=== PATIENT | female | born 1985 ===

== ENCOUNTER 2017-06-22 19:56 | Emergency (ER) | payer OTHER, BC ==
[2017-06-22 20:36] VITALS: RESP 16; TEMP 98.3; BMI 23.4
--- NOTE | 2017-06-22 20:48 | ED PDOC ---
Arrival/HPI - General Historian: Patient - History of Present Illness Time/Duration: Prior to Arrival Symptom Onset: Sudden Symptom Course: Unchanged Quality: Aching, Throbbing Severity Level: 8 Context: Walking, Work - General Chief Complaint: Back Pain Time Seen by Provider: 06/22/17 20:31 - History of Present Illness Narrative History of Present Illness (Text): 32 F with no significant PMH presents to ED with complaint of fall. Patient states that she was at work around 7 when she went to exit a platform and fell on her right side. She denies head trauma and LOC. Patient is experiencing pain in R shoulder, R hip, R femur and lower back. Patient rates pain as moderate to severe. She describes it as constant, aching and throbbing. Denies numbness/ tingling, weakness, motor/sensory deficit. (Leo Pugh) Past Medical History - Provider Review Nursing Documentation Reviewed: Yes - Travel History Have you recently traveled outside [place] w/in the past 3 mons?: No - Past History Past History: No Previous - Reproductive Menopause: No - Psychiatric Hx Substance Use: No Family/Social History - Physician Review Nursing Documentation Reviewed: Yes Family/Social History: Neoplasm/Cancer (lung) Smoking Status: Never Smoked Hx Alcohol Use: No Hx Substance Use: No Allergies/Home Meds Allergies/Adverse Reactions: Allergies No Known Allergies Allergy (Verified 06/22/17 20:27) Home Medications: Home Meds Medication Instructions Recorded Confirmed No Known Home Med 06/22/17 06/22/17 Review of Systems - Review of Systems Constitutional: absent: Fatigue, Weight Change, Fevers Eyes: absent: Vision Changes, Photophobia, Eye Pain ENT: absent: Hearing Changes, Sinus Congestion Respiratory: absent: SOB, Cough, Sputum, Wheezing Cardiovascular: absent: Chest Pain, Palpitations Gastrointestinal: absent: Abdominal Pain, Constipation, Diarrhea, Nausea, Vomiting Genitourinary Female: absent: Dysuria, Frequency, Hematuria Musculoskeletal: Arthralgias, Back Pain, Myalgias Skin: absent: Pruritis, Skin Lesions Neurological: Headache Endocrine: absent: Diaphoresis, Polyuria, Polydipsia Hemo/Lymphatic: absent: Adenopathy, Easy Bleeding, Easy Bruising Psychiatric: absent: Anxiety, Depression, Suicidal Ideation Physical Exam Vital Signs Reviewed: Yes Temperature: Afebrile Blood Pressure: Normal Pulse: Regular Respiratory Rate: Normal Appearance: Positive for: Uncomfortable Pain Distress: Moderate Mental Status: Positive for: Alert and Oriented X 3 - Systems Exam Head: Present: Atraumatic, Normocephalic Pupils: Present: PERRL Extroacular Muscles: Present: EOMI Conjunctiva: Present: Normal Mouth: Present: Moist Mucous Membranes Respiratory/Chest: Present: Clear to Auscultation, Good Air Exchange Cardiovascular: Present: Regular Rate and Rhythm, Normal S1, S2 Abdomen: Present: Normal Bowel Sounds. No: Tenderness, Distention, Peritoneal Signs, Rebound, Guarding Back: Present: Paraspinal Tenderness. No: CVA Tenderness, Midline Tenderness Upper Extremity: Present: NORMAL PULSES, Tenderness (r shoulder), Neurovascularly Intact, Capillary Refill < 2s Lower Extremity: Present: Tenderness (right thigh), Neurovascularly Intact, Capillary Refill < 2 s Neurological: Present: GCS=15, CN II-XII Intact, Speech Normal, Motor Func Grossly Intact, Normal Sensory Function Skin: Present: Warm, Dry Psychiatric: Present: Alert, Oriented x 3, Normal Insight, Normal Concentration Vital Signs Temp Pulse Resp BP Pulse Ox 06/22/17 23:57 64 16 129/84 100 06/22/17 19:57 98.3 F 67 16 110/67 98 Medical Decision Making ED Course and Treatment: R Shoulder XR, R hip, R femur, and Lumbar XR Toradol All xrays are negative as per ED attending. Patient is feeling better. She is able to ambulate without difficulty. (Leo Pugh) Patient Seen With Resident: In agreement with resident note which contains more details about the patient. Patient was seen and evaluated with resident. Came up with plan and treatment together. (Justin Kamara) - RAD Interpretation Radiology Orders: 06/22/17 20:44 FEMUR MIN 2 VIEWS RT [RAD] Stat HIP MIN 2V W/ PELVIS NAE [RAD] Stat SHOULDER RIGHT [RAD] Stat 06/22/17 20:49 LS SPINE AP/LAT [RAD] Stat - Medication Orders Current Medication Orders: Discontinued Medications Ketorolac Tromethamine (Toradol) 60 mg IM STAT STA Stop: 06/22/17 20:46 Last Admin: 06/22/17 22:10 Dose: 60 mg Disposition/Present on Arrival - Present on Arrival Any Indicators Present on Arrival: No History of DVT/PE: No History of Uncontrolled Diabetes: No Urinary Catheter: No History of Decub. Ulcer: No History Surgical Site Infection Following: None - Disposition Have Diagnosis and Disposition been Completed?: Yes Disposition Time: 11:25 Patient Plan: Discharge - Disposition Diagnosis: Fall, Trauma Disposition: HOME/ ROUTINE Condition: GOOD Additional Instructions: Thank you for letting us take care of you today. Your provider was Dr. Pugh /Dr. Kamara. You were treated for Fall and Trauma. The emergency medical care you received today was directed at your acute symptoms. If you were prescribed any medication, please fill it and take as directed. It may take several days for your symptoms to resolve. Return to the Emergency Department if your symptoms worsen, do not improve, or if you have any other problems. Please contact your doctor or call one of the physicians/clinics you have been referred to that are listed on the Patient Visit Information form that is included in your discharge packet. Bring any paperwork you were given at discharge with you along with any medications you are taking to your follow up visit. Our treatment cannot replace ongoing medical care by a primary care provider (PCP) outside of the emergency department. Thank you for allowing the [facility] team to be part of your care today. If you had an X-Ray or CT scan: A Radiologist will review the ED reading if any change in treatment is needed we will contact you. If you had a blood, urine, or wound culture: It will take several days for the results, if any change in treatment is needed we will contact you. If you had an STI test: It will take 48 hours for the results. Please call after 1 week if you have not heard back. May take OTC ibuprofen/tylenol for pain Follow up with orthopedics Follow up with PMD within 2-3 days Please return to ED if symptoms persist or condition worsens Referrals: Levi Zhu MD [Staff Provider] - Follow up with primary Forms: [employer] ([employer]), WORK NOTE
[2017-06-23 00:44] VITALS: BP 129/84; PULSE 64; O2SAT 100
--- NOTE | 2017-06-23 09:27 | RAD ---
PROCEDURE: Radiographs of the Lumbar Spine. HISTORY: s/p fall COMPARISON: No prior. FINDINGS: BONES: Normal alignment. No listhesis. No fracture. DISC SPACES: Unremarkable. OTHER FINDINGS: None. IMPRESSION: Unremarkable radiographs of the lumbar spine.
--- NOTE | 2017-06-23 09:30 | RAD ---
PROCEDURE: Radiographs of the pelvis and bilateral hips HISTORY: s/p fall COMPARISON: None. FINDINGS: BONES: There is no fracture dislocation involving the bilateral hip joints. There is no fracture of the pelvic ring of the pubic symphysis appearing diffusely unremarkable. JOINTS: No dislocation bilaterally. Borderline degenerate changes bilateral weight-bearing portions of the hip joints. SOFT TISSUES: Intrauterine device identified in the inferior pelvis soft tissues as well as likely stable phleboliths. Note is made of a heterogeneous density in the buttocks regions may reflect cosmetic injections. Clinically correlate. OTHER FINDINGS: None. IMPRESSION: No acute fracture dislocation of bilateral hips with the pelvic ring intact. Incidental note is made of intrauterine device in the pelvis soft tissues as discussed above.
--- NOTE | 2017-06-23 09:31 | RAD ---
PROCEDURE: Right Femur Radiographs. HISTORY: s/p fall COMPARISON: None. TECHNIQUE: AP and Lateral Radiographs of the right femur. FINDINGS: FEMUR: Normal. No fracture. No suspicious lytic or blastic change. SOFT TISSUES: Normal. OTHER FINDINGS: None. IMPRESSION: No acute fractures or dislocation right femur.
--- NOTE | 2017-06-23 09:32 | RAD ---
PROCEDURE: Radiographs of the Right Shoulder HISTORY: s/p fall COMPARISON: No prior. FINDINGS: BONES: No fracture or dislocation the right shoulder is appreciated. No suspicious lytic or blastic change. JOINTS: Normal. Glenohumeral and acromioclavicular joints preserved. No osteoarthritis. SOFT TISSUES: Normal. OTHER FINDINGS: None. IMPRESSION: No acute fracture or dislocation right shoulder.
== END 2017-06-22 23:59 | disposition home or self-care (01) ==
LOC: MERGE 19:56 → ED 19:56
DX: Z04.3 Encounter for examination and observation following other accident (principal); W18.39XA Other fall on same level, initial encounter; Y93.89 Activity, other specified; Y92.89 Other specified places as the place of occurrence of the external cause; Y99.0 Civilian activity done for income or pay
CPT/HCPCS: 72100; 73030; 73521; 73552; 96372; 99283; J1885